=== PATIENT | male | born 1935 | race African-American/Black ===

== ENCOUNTER 2016-08-10 09:35 | Emergency (ER) | payer OTHER ==
[~2016-08-10] VITALS: Ht 157.5 cm; Wt 77.0 kg
[~2016-08-10 09:35] MED LIST: ATOR40TA28 PO; CLOP75TA32 PO; ENAL5TAB PO
[2016-08-10] MEDS ORDERED: HYDR25TA PO (10:03)
[2016-08-10] MEDS ORDERED: TAMS0.4C32 PO (10:03)
[2016-08-10] MEDS ORDERED: METH10TA7 PO (10:03)
[2016-08-10] MEDS ORDERED: METO25 PO (10:03)
[2016-08-10] MEDS ORDERED: INDOMETHACIN 25 MG CAPSULE PO ONE (10:45)
[2016-08-10] MEDS ORDERED: OxyCODONE HCL/ACETAMINOPHEN 5-325 MG TABLET PO ONE (10:45)
[2016-08-10 13:25] VITALS: BP 128/73
== END 2016-08-10 13:38 | disposition home or self-care (01) ==
LOC: EMS 09:39
DX: S83.92XA Sprain of unspecified site of left knee, initial encounter (principal); E78.00 Pure hypercholesterolemia, unspecified; I10 Essential (primary) hypertension; W19.XXXA Unspecified fall, initial encounter; Y93.89 Activity, other specified; Y92.89 Other specified places as the place of occurrence of the external cause; Y99.8 Other external cause status
CPT/HCPCS: 99284

== ENCOUNTER → 2016-11-04 | Outpatient (CLI) | payer OTHER ==
[~2016-11-04] MED LIST changes: +HYDR25TA PO; +METH10TA7 PO; +METO25 PO; +TAMS0.4C32 PO
== END | disposition home or self-care (01) ==
LOC: RADPV 08:49
PROVIDERS: ATTEND Legal Medicine
DX: M17.0 Bilateral primary osteoarthritis of knee (principal); G45.9 Transient cerebral ischemic attack, unspecified
CPT/HCPCS: 93880

== ENCOUNTER → 2016-12-23 | Outpatient (CLI) | payer OTHER ==
[~2016-12-23] MED LIST changes: +GADOBUTROL 1 MMOL/ML 10 ML VIAL IVP ONE
== END | disposition home or self-care (01) ==
LOC: RADMN 09:32
PROVIDERS: ATTEND Legal Medicine
DX: I65.22 Occlusion and stenosis of left carotid artery (principal)
CPT/HCPCS: 70549; A9585

== ENCOUNTER → 2016-12-31 | Outpatient (CLI) | payer OTHER | END | disposition home or self-care (01) | LOC: RADMN 08:03 | PROVIDERS: ATTEND Specialist | DX: H49.01 Third [oculomotor] nerve palsy, right eye (principal); G93.89 Other specified disorders of brain; R90.82 White matter disease, unspecified | CPT/HCPCS: 70553; A9585 ==

== ENCOUNTER → 2017-01-11 | Outpatient (CLI) | payer OTHER ==
[~2017-01-11] MED LIST changes: -GADOBUTROL 1 MMOL/ML 10 ML VIAL IVP ONE; +IOVERSOL 350 MG/ML 100 ML VIAL ONE; +SODIUM CHLORIDE 0.9% 100 ML ONE
== END | disposition home or self-care (01) ==
LOC: RADMN 08:29
PROVIDERS: ATTEND Legal Medicine
DX: I65.23 Occlusion and stenosis of bilateral carotid arteries (principal); G93.89 Other specified disorders of brain; M62.89 Other specified disorders of muscle
CPT/HCPCS: 70496; J7050; Q9967

== ENCOUNTER → 2017-01-25 | Outpatient (CLI) | payer OTHER ==
[~2017-01-25] MED LIST changes: -IOVERSOL 350 MG/ML 100 ML VIAL ONE; -SODIUM CHLORIDE 0.9% 100 ML ONE
== END | disposition home or self-care (01) ==
LOC: RADPV 10:30
PROVIDERS: ATTEND Legal Medicine
DX: M19.072 Primary osteoarthritis, left ankle and foot (principal); M20.12 Hallux valgus (acquired), left foot; M21.42 Flat foot [pes planus] (acquired), left foot; M25.772 Osteophyte, left ankle; M85.872 Other specified disorders of bone density and structure, left ankle and foot

== ENCOUNTER → 2017-02-26 | Outpatient (CLI) | payer OTHER ==
[~2017-02-26] MED LIST changes: +GADOBUTROL 1 MMOL/ML 10 ML VIAL IVP ONE
== END | disposition home or self-care (01) ==
LOC: RADMN 09:21
PROVIDERS: ATTEND Legal Medicine
DX: H05.3 Deformity of orbit (principal); S05.21XA Ocular laceration and rupture with prolapse or loss of intraocular tissue, right eye, initial encounter
CPT/HCPCS: 70543; A9585

== ENCOUNTER 2018-07-13 04:32 | Emergency (ER) | payer MEDICARE, OTHER ==
[~2018-07-13] VITALS: Ht 152.4 cm; Wt 79.5 kg
[~2018-07-13 04:32] MED LIST changes: -GADOBUTROL 1 MMOL/ML 10 ML VIAL IVP ONE
[2018-07-13 07:00] VITALS: BP 136/67
[2018-07-13] MEDS ORDERED: IBUPROFEN 600 MG TABLET PO ONE (07:00)
== END 2018-07-13 07:29 | disposition home or self-care (01) ==
LOC: EMS 04:34
DX: M25.471 Effusion, right ankle (principal); I10 Essential (primary) hypertension; E78.00 Pure hypercholesterolemia, unspecified
CPT/HCPCS: 29540